=== PATIENT | female | born 1955 | race Caucasian/White ===

== ENCOUNTER → 2017-05-05 | Day surgery (SDC) | payer OTHER ==
[~2017-05-05] VITALS: Ht 152.4 cm; Wt 120.0 kg
[~2017-05-05] MED LIST: ACETAMINOPHEN 325 MG TAB PO PRN; ACT15 PO; ASPCH81X PO; ATOR10TA82 PO; ATROPINE SULFATE 0.1 MG/ML 5ML SYR IV PRN; CHOL100040; DC ALL ANTICOAGULANTS ONE; DICY20TA35 PO; FENTANYL CITRATE INJ 50 MCG/1 ML 2 ML VIAL ONE; FLUT0.15; GLC/500 PO; ISOS30TA3 PO; LEVO125T5 PO; LOSA50TA54 PO; MIDAZOLAM HCL 1 MG/ML 2ML VIAL ONE; SODIUM CHLORIDE 0.9% 1000ML 1,000 ML IV SCH; SODIUM CHLORIDE 0.9% 1000ML 250 ML IV PRN; TORS20TA2 PO; VNTHFA/IN INH
[2017-05-05 08:24] VITALS: BP 109/57; PULSE 69; TEMP 36.5; O2SAT 95; Ht 152.4 cm; Wt 120.0 kg
--- NOTE | 2017-05-05 09:30 | History & Physical Bridge Note ---
H&P Re-Evaluation Bridge Note: I have examined the patient, reviewed the History & Physical and in the interval since the performance of the History & Physical I have noted the following changes of clinical significance: No changes noted
--- NOTE | 2017-05-05 10:28 | Pre Sedation Assessment ---
Pre Sedation Assessment General Date of Sedation: May 05, 2017. 9:54AM Vital Signs Past 12 Hours Date Time Temp Pulse Resp B/P (MAP) Pulse Ox O2 Delivery O2 Flow Rate FiO2 05/05/17 10:15 54 16 109/70 (83) 96 Room Air 05/05/17 08:24 36.5 69 16 109/57 (74) 95 Room Air Review Cardiovascular: regular rate, rhythm Lungs: lungs clear Pre-Sedation Airway Assessment Smoking Status: Never Smoker Hx of Sleep Apnea: No Hx of difficult intubation: No Short Thick Neck: Yes Thyro-mental Distance: < or =3 Finger Breadths Oral Cavity: Dental Abnormalities Mallampati Classification: Class III ASA Classification: Class IV NPO Status Date of Last Intake of Fluids: May 04, 2017 Time of Last Intake of Fluids: 1999 Date of Last Intake of Solids: May 04, 2017 Time of Last Intake of Solids: 230 Procedure Planning Contraindications for Sedation: None Current Medications Reviewed: Yes Notes The planned sedation has been discussed with the patient. Informed Consent was obtained. I have identified the patient, determined the appropriateness of sedation and have assessed the patient immediately prior to the procedure. All medicine(s) and interventions are by my order.
--- NOTE | 2017-05-05 10:29 | Post Sedation Assessment ---
Post Sedation Assessment General Date of Sedation May 05, 2017. 10:15 AM Vital Signs: Vital Signs Past 12 Hours Date Time Temp Pulse Resp B/P (MAP) Pulse Ox O2 Delivery O2 Flow Rate FiO2 05/05/17 10:15 54 16 109/70 (83) 96 Room Air 05/05/17 08:24 36.5 69 16 109/57 (74) 95 Room Air Post Procedure Recovery Score Activity: (2) Moves 4 extremities * Respiration: (2) Deep breath/cough Circulation: (2) +/-20% PreAnes Value Consciousness: (2) Fully Awake Oxygen Saturation: (2) > 92% On Room Air Post Anesthesia Score: 10 Discharge Sedation Level of Care: Fast Track Phase II Post Sedation Plan On clinical assessment, the patient appears to have tolerated the sedation without complications. Patient is recovering as anticipated. Patient will continue to be monitored by nursing and may be discharged when sedation discharge criteria are met per below protocol. Upon Completions of procedure and additional 15 minutes continue every 5 minute vital signs and the P.A.R. score; then discharge to a Phase I or Fast Track to Phase II per the following guidelines: * Discharge Patient to appropriate Phase II area if PAR is 8 or greater or return to pre- procedure baseline. The post - procedure orders will be as directed. * If PAR score is less than 8 or not return to pre-procedure baseline then patient will follow Phase I monitoring till PAR is reached for Phase II. The Phase I may be done in procedure room or may call to secure a Phase I area. * If naloxone or flumazenil are used for reversal, hold in Phase I for an additional 60 -120 minutes before discharge to Phase II. Please call the Sedation Physician to re-evaluate and complete post-note for discharge to Phase II area. Do NOT discharge from procedure sedation or Phase 1 until post- sedation evaluation note is complete by procedure /sedation MD Sedation Discharge Instructions to be given to the patient at discharge to home.
--- NOTE | 2017-05-05 10:35 | Cardiac Catheterization ---
Procedure Note Procedure Date May 05, 2017. Pre-Procedure Diagnosis Angina AUC Score 7 Post-Procedure Diagnosis Normal Coronary Arteries, Normal LV Systolic Function Procedure(s) Performed Coronary Angiography, Left Heart Cath, LV Angiography Landscape Architecture Professor Dr. Dominguez Business Strategist(s) None Estimated Blood Loss None Medication(s) Versed, Lidocaine 1% Summary of Findings See dictated report Hemodynamics Rest Ao: 101/50 Final Ao: 93/43 LV: 98/14 Recommendations Medical therapy and/or Counseling Specimens None Radiation Exposure (mGy) 1114 Contrast (mls) 122 Fluids (cc crystalloids) 55 Procedural Complication(s) None Disposition Business Strategist Holding/Recovery ACC Data Cardiac Status Clinical evaluation leading to the procedure CAD Presntation: Stable angina Anginal Classification: CCS II Heart Failure: No Cardiogenic Shock w/in 24Hrs: No Cardiac Arrest w/in 24Hrs: No Imaging studies past 6 months: Yes Stress studies past 6 months: Yes Stress Echocardiogram: Yes - Negative Coronary Anatomy Dominant: Left (See dictated report) Left Ventricular Angiography EF (%): 60 Mitral Regurgitation: None Aortography Aortic Regurgitation: None Diagnostic Physician's Name: Genaro Dominguez, DO Status: Elective Closure Device Percutaneous Entry Location: Femoral Closure Device: Mynx Recommendations: Medical therapy and/or Counseling
--- NOTE | 2017-05-05 10:37 | Discharge Instructions ---
Discharge Instructions Procedure Procedure Date: May 05, 2017. Reason for Visit: Chest Pain W/ Exertion *Alberto Doing*. Discharge Discharge Date: May 05, 2017. Discharge Diagnosis: Normal Coronaries Last Recorded Wt (Kilograms): 120 Anesthesia Post Anesthesia Instructions: If you have had General Anesthesia or IV Sedation: * Do not drive today. * Resume driving when surgeon permits. * Do not make important decisions or sign legal documents today. * Call surgeon for: 1. Temperature elevations greater than 101 degrees F. 2. Uncontrollable pain. 3. Excessive bleeding. 4. Persistent nausea and vomiting. 5. Medication intolerance (nausea, vomiting or rash). * For nausea and vomiting use only clear liquids such as: tea, soda, bouillon until nausea subsides, then gradually increase diet as tolerated. * If you have any concerns or questions, call your surgeon's office. If physician is unavailable and it is an emergency, call 911 or go to the nearest emergency room. Instructions Activity Recommendations: limitations Recommended Home Diet: resume previous diet Allergies: Coded Allergies: NO KNOWN DRUG ALLERGIES (Verified Allergy, Unknown, ., 10/21/15) Provider Instructions ACTIVITY RECOMMENDATIONS: It is common to feel weak and fatigue for a few days. * Do not drive or operate any motorized equipment for the next three days. * Limit stair usage (2 or 3 trips a day only) for the next three days. * Do not lift anything heavier than 10 pounds for the next three days. * Do not engage in vigorous exercise or any sports for the next five days. * You may shower the day after your procedure, but do not immerse the area for three days. Cleanse the site gently with soap and water. SPECIAL CARE INSTRUCTIONS: * You may replace the pressure dressing or band-aid the morning after the procedure. * After your procedure, it is normal to have a small bruise or small lump at the site. Examine your site daily for any change in the bruise or lump, redness, swelling, drainage or numbness. Notify your doctor if any change. BLEEDING: * If there is a small amount of bleeding at the site, lie down and apply firm pressure with a clean cloth for ten minutes. When the bleeding stops, lie quietly keeping the procedure limb straight for six hours. Notify your doctor as soon as possible. * If the bleeding does not stop after ten minutes or if there is a large amount of bleeding or spurting, call 911 immediately. Continue to lie down and hold firm pressure until help arrives. SKIN IRRITATION: * You may experience some redness and/or swelling in the area where radiation was administered. If any skin irritation occurs, please contact your family physician. FOLLOW UP VISIT: Keep any scheduled doctor appointments. Follow Up Follow-up with: Follow-up as scheduled with HERRERA Busby Recommendations: Call your doctor if: * Temperature above 101 degrees * Pain not relieved by pain medicine ordered * There is increased drainage or redness from any incision * You have any unanswered questions or concerns. Your Doctors Instructions noted above were prepared by provider Genaro Dominguez. Patient Signature Section: Patient Instructions Signature Page Carmenza Holder Patient (or Guardian) Signature/Date: I have read and understand the instructions given to me by my caregivers. Caregiver/RN/Doctor Signature/Date: The above-named patient and/or guardian has received patient instructions on this date. + Original Patient Signature Page (only) stays with chart. Please make copy for patient.
--- NOTE | 2017-05-05 11:15 | CARDIAC CATH REPORT ---
PROCEDURES: 1. Left heart catheterization. 2. Coronary angiography. 3. Left ventriculography. HISTORY OF PRESENT ILLNESS: This is a 61-year-old female who has multiple risk factors for coronary artery disease and continuous chest pain. The patient did undergo an outpatient dobutamine stress test that was negative; however, she continues to have ongoing chest pain, suggesting angina and due to her multiple risk factors, it was felt best that she undergo a cardiac catheterization. PROCEDURE SUMMARY: After informed consent was obtained, the patient was taken to the cardiac catheterization lab, where she was prepped and draped in the usual manner for a right transfemoral approach. Preformed 5-Turkish diagnostic catheters were utilized for the left coronary angiogram. The right coronary artery is very small and cannulation with a 5-Turkish catheters would dampen, so we switched to a 4-Turkish catheter system. A 5-Turkish pigtail catheter was utilized for the left ventriculogram. Following the procedure, the patient's arterial site was closed with a Mynx device and the patient was returned to her room in stable condition. CORONARY ANGIOGRAPHY: The patient has a hyperdominant left system. The left main trunk is widely patent and within normal limits. The left circumflex artery is large and supplies the posterior septum. The left circumflex system is smooth in appearance, widely patent, and within normal limits. The LAD gives off multiple diagonal branches and continues around the apex of the heart. The LAD system is smooth in appearance, widely patent, and within normal limits. Selective injections of the right coronary artery reveal it to be very small and nondominant. LEFT VENTRICULOGRAM: The left ventricle is of normal size with normal systolic function. The estimated left ventricular ejection fraction is 60%. There is normal wall motion. The LVEDP is 98/14. Mitral valve is competent. The aortic root and ascending aorta have normal morphology and diameter. SUMMARY: The patient has widely patent and normal coronary anatomy. Normal LV function. RECOMMENDATIONS: Are for continued risk factor modifications and medical treatment.
[2017-05-05 14:00] VITALS: BP 118/70; PULSE 66; O2SAT 98
== END | disposition home or self-care (01) ==
LOC: C.CATH 08:14
PROVIDERS: ATTEND Internal Medicine Interventional Cardiology
DX: R07.9 Chest pain, unspecified (principal); E03.9 Hypothyroidism, unspecified; G25.81 Restless legs syndrome; R79.82 Elevated C-reactive protein (CRP); Z68.43 Body mass index [BMI] 50.0-59.9, adult; E55.9 Vitamin D deficiency, unspecified; K21.0 Gastro-esophageal reflux disease with esophagitis; E11.9 Type 2 diabetes mellitus without complications; E78.5 Hyperlipidemia, unspecified; K58.9 Irritable bowel syndrome, unspecified; E66.2 Morbid (severe) obesity with alveolar hypoventilation; Z82.49 Family history of ischemic heart disease and other diseases of the circulatory system; Z83.3 Family history of diabetes mellitus; Z82.0 Family history of epilepsy and other diseases of the nervous system; Z79.84 Long term (current) use of oral hypoglycemic drugs; Z79.82 Long term (current) use of aspirin